=== PATIENT | female | born 1970 | race Caucasian/White ===

== ENCOUNTER 2018-07-14 21:35 | Emergency (ER) | payer BC ==
--- NOTE | 2018-07-14 21:48 | UC ---
Throat Pain/Nasal [place] HPI - HPI Summary HPI Summary: C/O nasal congestion with frontal sinus pain and low grade fevers. H/O sinus infections and sinus surgery. - History of Current Complaint Stated Complaint: SINUS COMPLAINT Hx Obtained From: Patient Hx Last Menstrual Period: 05/02/16 ?: No Onset/Duration: Gradual Onset, Lasting Days - 2, Still Present Severity: Mild Cough: None Associated Signs & Symptoms: Positive: Sinus Discomfort, Nasal Discharge Related History: Seasonal Allergies - Allergies/Home Medications Allergies/Adverse Reactions: Allergies Allergy/AdvReac Type Severity Reaction Status Date / Time Sulfa (Sulfonamide Allergy Severe Rash Verified 07/14/18 21:41 Antibiotics) Home Medications: Home Medications Fluticasone NASAL SPRAY 50MCG* [Flonase NASAL SPRAY 50MCG*] 2 spray BOTH NARES DAILY 07/14/18 [History Confirmed 07/14/18] Montelukast Sodium TAB* [Singulair 10 MG TAB*] 10 mg PO DAILY 07/14/18 [History Confirmed 07/14/18] Tri-Estarylla (Nf) [Tri-Estarylla] 1 tab PO DAILY 07/14/18 [History Confirmed ] diPHENhydraMINE PO* [Benadryl PO 25 MG TAB*] 25 mg PO BEDTIME PRN 07/14/18 [ History Confirmed 07/14/18] PMH/Surg Hx/FS Hx/Imm Hx Neurological History: Migraine - Surgical History Surgical History: Yes Surgery Procedure, Year, and Place: RT SHOULDER SURG, LEFT 5TH FINGER AMPUTATION , sinus surgery - Family History Known Family History: Positive: Cardiac Disease, Hypertension - Social History Occupation: Employed Full-time Lives: With Family Alcohol Use: Occasionally Substance Use Type: None Smoking Status (MU): Former Smoker Type: Cigarettes Amount Used/How Often: 1 ppd Length of Time of Smoking/Using Tobacco: 15 yrs Have You Smoked in the Last Year: No When Did the Patient Quit Smoking/Using Tobacco: 1999 Review of Systems All Other Systems Reviewed And Are Negative: Yes Constitutional: Positive: Fever ENT: Positive: Nasal Discharge, Sinus Congestion, Sinus Pain/Tenderness Physical Exam Triage Information Reviewed: Yes Appearance: Well-Appearing - after taking ibuprofen, No Pain Distress, Well- Nourished Vital Signs Reviewed: Yes Eyes: Positive: Conjunctiva Clear ENT: Positive: Pharynx normal, Nasal congestion - with allergic changes, TMs normal Neck exam: Normal Respiratory Exam: Normal Cardiovascular Exam: Normal Musculoskeletal Exam: Normal Neurological Exam: Normal Psychological Exam: Normal Skin Exam: Normal Throat Pain/Nasal Course/Dx - Differential Dx/Diagnosis Differential Diagnosis/HQI/PQRI: Laryngitis, Pharyngitis, Sinusitis Provider Diagnoses: Allergic rhinitis. Acute sinusitis Discharge - Sign-Out/Discharge Documenting (check all that apply): Patient Departure All imaging exams completed and their final reports reviewed: No Studies - Discharge Plan Condition: Stable Disposition: HOME Prescriptions: Amoxicillin/Clavulanate TAB* [Augmentin TAB 875*] 875 mg PO BID #20 tab Azelastine 0.15% NASAL(NF) [Astepro 0.15% NASAL (NF)] 2 spray NASAL DAILY #30 ml Fluconazole 150 MG (NF) [Diflucan 150 mg (NF)] 150 mg PO ONCE #1 tab Patient Education Materials: Sinusitis (ED), Amoxicillin/Clavulanate Potassium (By mouth) Referrals: No Primary Care Phys,NOPCP [Primary Care Provider] - - Billing Disposition and Condition Condition: STABLE Disposition: Home
[2018-07-14] MEDS ORDERED: Amoxicillin/Clavulanate TAB* 875 MG PO ONE (21:53)
[2018-07-14 21:55] VITALS: BP 139/84
== END 2018-07-14 22:00 | disposition home or self-care (01) ==
LOC: UCCORT 21:35
DX: J30.9 Allergic rhinitis, unspecified (principal); J01.90 Acute sinusitis, unspecified; Z88.2 Allergy status to sulfonamides; Z87.891 Personal history of nicotine dependence
CPT/HCPCS: 99212; A9270-GY; G0463

== ENCOUNTER 2018-11-12 18:26 | Emergency (ER) | payer BC ==
[2018-11-12 18:57] VITALS: BP 114/79
--- NOTE | 2018-11-12 19:21 | UC ---
Epistaxis Nasal HPI - HPI Summary HPI Summary: 48 yo female s/p nasal trauma about 2:30 PM no epistaxis swollen nasal bridge - History of Current Complaint Chief Complaint: UCTrauma Stated Complaint: NASAL INJURY Time Seen by Provider: 11/12/18 19:04 Hx Obtained From: Patient Hx Last Menstrual Period: 11/08/18 Onset/Duration: Sudden Onset, Lasting Hours Severity Initially: Severe Severity Currently: Mild Pain Intensity: 3 Pain Scale Used: 0-10 Numeric Aggravating Factor(s): Nasal Trauma Alleviating Factor(s): Ice Associated Signs And Symptoms: Positive: Bruising - Allergies/Home Medications Allergies/Adverse Reactions: Allergies Allergy/AdvReac Type Severity Reaction Status Date / Time Sulfa (Sulfonamide Allergy Severe Rash Verified 11/12/18 18:57 Antibiotics) Home Medications: Home Medications Aspirin/Acetaminophen/Caffeine [Excedrin Migraine Caplet] 1 each PO DAILY [History Confirmed 11/12/18] Bupropion XL* [Wellbutrin XL *] 150 mg PO DAILY 11/12/18 [History Confirmed ] PMH/Surg Hx/FS Hx/Imm Hx Previously Healthy: Yes Respiratory History: Asthma - Surgical History Surgical History: Yes Surgery Procedure, Year, and Place: RT SHOULDER SURG, LEFT 5TH FINGER AMPUTATION , sinus surgery - Family History Known Family History: Positive: Cardiac Disease, Hypertension - Social History Alcohol Use: Occasionally Substance Use Type: None Smoking Status (MU): Former Smoker Type: Cigarettes Amount Used/How Often: 1 ppd Length of Time of Smoking/Using Tobacco: 15 yrs Have You Smoked in the Last Year: No When Did the Patient Quit Smoking/Using Tobacco: 1999 Review of Systems All Other Systems Reviewed And Are Negative: Yes Constitutional: Positive: Negative Skin: Positive: Bruising Eyes: Positive: Negative ENT: Positive: Negative Respiratory: Positive: Negative Cardiovascular: Positive: Negative Gastrointestinal: Positive: Negative Genitourinary: Positive: Negative Motor: Positive: Negative Neurovascular: Positive: Negative Musculoskeletal: Positive: Negative Neurological: Positive: Negative Psychological: Positive: Negative Physical Exam Triage Information Reviewed: Yes Appearance: Well-Appearing, No Pain Distress, Well-Nourished Vital Signs: Initial Vital Signs Temp 98.9 F 11/12/18 18:53 Pulse 78 11/12/18 18:53 Resp 16 11/12/18 18:53 BP 114/79 11/12/18 18:53 Pulse Ox 100 11/12/18 18:53 Eye Exam: Normal Eyes: Positive: Conjunctiva Clear ENT: Positive: Hearing grossly normal, Nasal congestion, TMs normal, Uvula midline, Other - swollen/bruised over nasal bridge. Negative: Pharyngeal erythema, Tonsillar swelling, Tonsillar exudate, Trismus, Muffled voice, Hoarse voice, Dental tenderness, Sinus tenderness Dental Exam: Normal Neck: Positive: Supple, Nontender, No Lymphadenopathy Respiratory: Positive: Lungs clear, Normal breath sounds, No respiratory distress Cardiovascular: Positive: RRR, No Murmur Musculoskeletal: Positive: ROM Intact, No Edema Neurological: Positive: Alert Psychological Exam: Normal Skin Exam: Normal Diagnostics - Radiology No standard instances Radiology Interpretation Completed By: ED Physician Summary of Radiographic Findings: nasal bone fx, distal fragment depressed Epistaxis Nasal Course/Dx - Differential Dx/Diagnosis Provider Diagnosis: Nasal fracture Discharge - Sign-Out/Discharge Documenting (check all that apply): Patient Departure All imaging exams completed and their final reports reviewed: No - Discharge Plan Condition: Stable Disposition: HOME Patient Education Materials: Nasal Fracture (ED) Referrals: MANISHA Orellana [Primary Care Provider] - Additional Instructions: call you ENT in AM to arrange follow up rest ice - Billing Disposition and Condition Condition: STABLE Disposition: Home
--- NOTE | 2018-11-13 11:33 | UC ---
- Progress Note Progress Note: RADIOLOGY REPORT REVIEWED. CONFIRMS MINIMALLY DISPLACED FRACTURE OF THE NASAL BONES. NO CHANGE IN MGMT. Course/Dx - Diagnoses Provider Diagnoses: Nasal fracture Discharge - Sign-Out/Discharge Documenting (check all that apply): Post-Discharge Follow Up All imaging exams completed and their final reports reviewed: Yes - Discharge Plan Condition: Stable Disposition: HOME Patient Education Materials: Nasal Fracture (ED) Forms: *Work Release Referrals: MANISHA Orellana [Primary Care Provider] - Additional Instructions: call you ENT in AM to arrange follow up rest ice - Billing Disposition and Condition Condition: STABLE Disposition: Home
== END 2018-11-12 19:43 | disposition home or self-care (01) ==
LOC: UCCORT 18:26
DX: S02.2XXA Fracture of nasal bones, initial encounter for closed fracture (principal); J45.909 Unspecified asthma, uncomplicated; Z88.2 Allergy status to sulfonamides; Z87.891 Personal history of nicotine dependence; Z79.82 Long term (current) use of aspirin; X58.XXXA Exposure to other specified factors, initial encounter; Y92.9 Unspecified place or not applicable
CPT/HCPCS: 70160; 99211; G0463